=== PATIENT | female | born 1995 | race Caucasian/White ===

== ENCOUNTER 2020-09-19 16:06 | Emergency (ER) | payer OTHER ==
[~2020-09-19] VITALS: Ht 167.6 cm; Wt 54.5 kg
[2020-09-19 16:57] VITALS: BP 119/66
== END 2020-09-19 18:52 | disposition home or self-care (01) ==
LOC: EMS 16:07
DX: F32.9 Major depressive disorder, single episode, unspecified (principal); Z91.011 Allergy to milk products; Z91.018 Allergy to other foods
CPT/HCPCS: 99285; Z7502